=== PATIENT | male | born 1985 ===

== ENCOUNTER 2017-05-04 22:11 | Inpatient (IN) | payer MEDICAID ==
[2017-05-04 22:42] LABS: BASO # 0.1 K/uL (0.0-0.2); BASO % 0.8 % (0.0-2.0); EOS # 0.2 K/uL (0.0-0.7); EOS % 2.4 % (0.0-4.0); HEMATOCRIT 38.9 % (35.0-51.0); LYMPH # 2.5 K/uL (1.0-4.3); LYMPH % 36.5 % (20.0-40.0); MEAN CELL VOLUME 93.7 fL (80.0-94.0); MEAN CORPUSCULAR HEMOGLOBIN 31.2 pg (27.0-31.0); MEAN CORPUSCULAR HGB CONC 33.3 g/dL (33.0-37.0); MEAN PLATELET VOLUME 7.8 fL (7.2-11.7); MONO # 0.6 K/uL (0.0-0.8); MONO % 8.2 % (0.0-10.0); RED CELL DISTRIBUTION WIDTH 14.2 % (11.5-14.5); WHITE BLOOD COUNT 6.8 K/uL (4.8-10.8)
[2017-05-04 22:53] LABS: CHLORIDE 101 mmol/L (98-107)
[2017-05-04 22:54] LABS: POTASSIUM 3.4 mmol/L (3.6-5.2); SODIUM 140 mmol/L (132-148)
[2017-05-04 22:56] LABS: BILIRUBIN,TOTAL 0.8 mg/dL (0.2-1.3); CARBON DIOXIDE 23 mmol/L (22-30); GFR AFRICAN-AMERICAN > 60
[2017-05-04 22:57] LABS: ALB/GLOB RATIO 1.1 (1.0-2.1); ALKALINE PHOSPHATASE 76 U/L (38-126); ALT/SGPT 35 U/L (21-72); AST/SGOT 30 U/L (17-59); BLOOD UREA NITROGEN 14 mg/dL (9-20); GLUCOSE,RANDOM 114 mg/dL (75-110); TOTAL PROTEIN 8.5 g/dL (6.3-8.3)
[2017-05-04 22:58] LABS: ALCOHOL SERUM < 10 mg/dl (0-10)
[2017-05-04 23:06] LABS: RBC URINE 1 /hpf (0-3); URINE BACTERIA OCC (<OCC); URINE BILIRUBIN NEGATIVE (NEGATIVE); URINE BLOOD NEGATIVE (NEGATIVE); URINE COLOR Yellow (YELLOW); URINE GLUCOSE (UA) NORMAL (Normal); URINE KETONE TRACE mg/dL (NEGATIVE); URINE LEUKOCYTE ESTERASE TRACE Leu/uL (Negative); URINE PROTEIN NEGATIVE (NEGATIVE); WBC URINE 5 /hpf (0-5)
[2017-05-04] MEDS ORDERED: Naloxone 0.4 mg/ml Inj (Adult) IV STA ×3 (23:12→23:14)
--- NOTE | 2017-05-04 23:59 | C.PDOC ---
History Of Present Illness Patient is a 32 year old male brought in to the ER by EMS after he was found unresponsive in a hotel room. Patient was given 2.8mg of narcan in the field with no response; EMS reports he vomited on enroute. Patient was given another 8mg of narcan in the ER; patient sat up and vomited while nurses attempted to start an IV and once during an intubation attempt. Patient is unresponsive and has not verbalized any complaints at the time. Time Seen by Provider: 05/04/17 22:57 Chief Complaint (Nursing): Substance Abuse History Per: EMS History/Exam Limitations: no limitations, clinical condition Onset/Duration Of Symptoms: Unknown Current Symptoms Are (Timing): Still Present Modifying Factor(s): Other (Unknown) Involuntary Hold By: None Past Medical History Reviewed: Historical Data, Nursing Documentation, Vital Signs Vital Signs: Last Vital Signs Temp 94.1 F L 05/04/17 22:15 Pulse 61 05/04/17 22:15 Resp 8 L 05/04/17 22:15 BP 133/85 05/04/17 22:15 Pulse Ox 98 05/05/17 00:05 - Medical History Other PMH: Unable to obtain Other Surgeries: Unable to obtain Family History: States: Unknown Family Hx - Social History Hx Substance Use: Yes - Immunization History Hx Tetanus Toxoid Vaccination: No (unobtainable) Hx Influenza Vaccination: No (unobtainable) Hx Pneumococcal Vaccination: No (unobtainable) Review Of Systems Review Of Systems: ROS cannot be obtained secondary to pt's inabilty to answer questions. Physical Exam - Physical Exam Appears: Other (Unresponsive) Skin: Warm, Dry Head: Atraumatic, Normacephalic Eye(s): bilateral: Other (Pin point contricted pupils, nonreactive) Oral Mucosa: Moist Chest: Symmetrical, No Tenderness Cardiovascular: Rhythm Regular, No Murmur Respiratory: No Rales, No Rhonchi, Wheezing (Slightly audible wheezing), Other ( Respirations at 8-10 per minute) Gastrointestinal/Abdominal: Soft, Tenderness Extremity: Bilateral: Atraumatic Pulses: Left Carotid: Normal, Right Carotid: Normal Neurological/Psych: No Response To Commands Pain Response: No Response To Pain ED Course And Treatment - Laboratory Results Result Diagrams: 05/04/17 22:39 05/04/17 22:39 Lab Interpretation: Abnormal ECG: Interpreted By Me ECG Rhythm: Sinus Rhythm ECG Interpretation: Normal O2 Sat by Pulse Oximetry: 98 (Room air) Pulse Ox Interpretation: Normal Progress Note: Narcan administered. Blood work, EKG, and CXR ordered. Attempt to intubate patient resulted in stimulation with vomiting. He woke briefly but then became unresponsive again. His pupils continue to be constricted and respirations depressed although he is saturating well. Dr Souza at bedside. Will admit to ICU for observation. Case discussed with Dr Baeza. Reevaluation Time: 00:11 Reassessment Condition: Improved (Patient now awake and reported use methamphetamines and GHB.) Disposition - Disposition Disposition: HOSPITALIZED Disposition Time: 00:14 Condition: IMPROVED - Clinical Impression Clinical Impression: Drug overdose - Scribe Statement The provider has reviewed the documentation as recorded by the Scribkorina Mcfarland All medical record entries made by the Scribe were at my direction and personally dictated by me. I have reviewed the chart and agree that the record accurately reflects my personal performance of the history, physical exam, medical decision making, and the department course for this patient. I have also personally directed, reviewed, and agree with the discharge instructions and disposition.
--- NOTE | 2017-05-05 | CP.PCM.HP ---
History of Present Illness - History of Present Illness History of Present Illness: CC - Unresponsive HPI - 32 year old male presents to the ED brought in by EMS. Patient is a 32 year old male brought in to the ER by EMS after he was found unresponsive in a hotel room. Patient was given 2.8mg of narcan in the field with no response; EMS reports he vomited on enroute. Patient was given another 8mg of narcan in the ER; patient sat up and vomited while nurses attempted to start an IV and once during an intubation attempt. Patient was noted to have decreased respiratory rate and was saturating well on ventimask. Patient woke up with sternal rub and was able to given his name and birthdate and stated "I did methamphetamine" but he was not able to provide any other information. Patient was moving all of his extremities. Medical history unobtainable. Present on Admission - Present on Admission Any Indicators Present on Admission: No Review of Systems - Review of Systems Systems not reviewed;Unavailable: Altered Mental Status Past Patient History - Infectious Disease Hx of Infectious Diseases: None - Past Social History Smoking Status: unknown - PSYCHIATRIC Hx Substance Use: Yes - SURGICAL HISTORY Hx Surgeries: No (unable to obtain) - ANESTHESIA Hx Anesthesia: No Meds Allergies/Adverse Reactions: Allergies Allergy/AdvReac Type Severity Reaction Status Date / Time No Allergy Information Allergy Verified 05/04/17 23:27 Available Physical Exam - Constitutional Appears: Toxic, In Acute Distress, Confused Additional comments: Altered, Unresponsive - Head Exam Head Exam: ATRAUMATIC, NORMAL INSPECTION - Eye Exam Eye Exam: EOMI, Normal appearance, PERRL Pupil Exam: NORMAL ACCOMODATION Additional comments: constricted - ENT Exam ENT Exam: Mucous Membranes Moist - Respiratory Exam Respiratory Exam: Clear to Auscultation Bilateral, NORMAL BREATHING PATTERN. absent: Accessory Muscle Use, Decreased Breath Sounds, Respiratory Distress - Cardiovascular Exam Cardiovascular Exam: REGULAR RHYTHM, +S1, +S2 - GI/Abdominal Exam GI & Abdominal Exam: Normal Bowel Sounds, Soft. absent: Distended, Firm, Guarding, Tenderness - Extremities Exam Extremities exam: Positive for: normal inspection. Negative for: calf tenderness, pedal edema - Back Exam Back exam: NORMAL INSPECTION. absent: CVA tenderness (L), CVA tenderness (R), paraspinal tenderness - Neurological Exam Neurological exam: Altered - Skin Additional comments: L antecubital spots of possible IV drug injection Results - Vital Signs Recent Vital Signs: Last Vital Signs Temp 94.1 F L 05/04/17 22:15 Pulse 61 05/04/17 22:15 Resp 8 L 05/04/17 22:15 BP 133/85 05/04/17 22:15 Pulse Ox 98 05/04/17 22:15 - Labs Result Diagrams: 05/04/17 22:39 05/04/17 22:39 Assessment & Plan - Assessment and Plan (Free Text) Assessment: Altered mental status Narcan 10mg IVP given in the ED Narcan 1mg IVP Q1 prn RR <6 Zofran 4mg IV Q4 x 3 doses D5 1/2NS at 40 meq Kcl at 100 cc/hour seizure and aspiration precautions f/u labs, UDS Heparin 500 U SC q8 Admit to ICU
[2017-05-05] MEDS ORDERED: Naloxone 0.4 mg/ml Inj (Adult) IVP PRN (00:11)
[2017-05-05 00:54] LABS: INR 1.2
[2017-05-05] MEDS: Potassium Chl 40 mEq in D5-1/2 1,000 ML IV SCH ×3 (01:20→22:45)
[2017-05-05 02:06] VITALS: O2SAT 100
[2017-05-05 06:48] LABS: BASO # 0.1 K/uL (0.0-0.2); BASO % 0.8 % (0.0-2.0); EOS # 0.1 K/uL (0.0-0.7); EOS % 0.9 % (0.0-4.0); HEMATOCRIT 39.1 % (35.0-51.0); LYMPH # 2.6 K/uL (1.0-4.3); LYMPH % 30.1 % (20.0-40.0); MEAN CELL VOLUME 93.5 fL (80.0-94.0); MEAN CORPUSCULAR HEMOGLOBIN 31.2 pg (27.0-31.0); MEAN CORPUSCULAR HGB CONC 33.4 g/dL (33.0-37.0); MEAN PLATELET VOLUME 7.9 fL (7.2-11.7); MONO # 0.7 K/uL (0.0-0.8); MONO % 7.5 % (0.0-10.0); RED CELL DISTRIBUTION WIDTH 14.7 % (11.5-14.5); WHITE BLOOD COUNT 8.7 K/uL (4.8-10.8)
--- NOTE | 2017-05-05 07:05 | CP.PCM.CON ---
History of Present Illness - History of Present Illness History of Present Illness: CC - Unresponsive HPI - 32 year old male presents to the ED brought in by EMS. Patient is a 32 year old male brought in to the ER by EMS after he was found unresponsive in a hotel room. Patient was given 2.8mg of narcan in the field with no response; EMS reports he vomited on enroute. Patient was given another 8mg of narcan in the ER; patient sat up and vomited while nurses attempted to start an IV and once during an intubation attempt. Patient was noted to have decreased respiratory rate and was saturating well on ventimask. Patient woke up with sternal rub and was able to given his name and birthdate and stated "I did methamphetamine" but he was not able to provide any other information. Patient was moving all of his extremities. Patient claims that he was using, Gamma hydroxybutyrate, street drug after that patient was found unresponsive in the hotel, and brought in by the ambulance. In the emergency room patient was unresponsive initially, he was not responding to Narcan, and he also vomited at 2. Patient claims that he had a similar episode 2 years ago, and at the time he was on respirator intubated. Currently he is awake and responding. He denies any chest pain. Somewhat sleepy otherwise. Review of system: He has no headache, mild dizziness noted, chest pain negative, vomited 2 Vital signs reviewed No neck vein distention noted Chest good air entry bilaterally, no wheezing or rales noted CVS regular heart sound, no murmur noted Abdomen soft, nontender. Extremities no pedal edema FRONT EDGER alert awake oriented 3, no functional neurological deficit Vitals stable at this time, labs reviewed Assessment and recommendation: 32-year-old male admitted with a drug overdose. Unresponsive, improved markedly. Currently doing okay. Closely monitor the patient Past Patient History - Infectious Disease Hx of Infectious Diseases: None - Past Medical History & Family History Past Medical History?: Yes - Past Social History Smoking Status: unknown - CARDIAC Hx Cardiac Disorders: Yes Hx Heart Murmur: Yes Other/Comment: heart murmur during childhood - PULMONARY Hx Respiratory Disorders: Yes Other/Comment: intubated 2 years- due to drug overdose; got unresponsive - NEUROLOGICAL Hx Neurological Disorder: No - HEENT Hx HEENT Problems: No - RENAL Hx Chronic Kidney Disease: No - ENDOCRINE/METABOLIC Hx Endocrine Disorders: No - HEMATOLOGICAL/ONCOLOGICAL Hx Anemia: Yes Other/Comment: HIV diagnosed 2012 - INTEGUMENTARY Hx Cellulitis: Yes Other/Comment: impetigo-face - MUSCULOSKELETAL/RHEUMATOLOGICAL Hx Falls: Yes - GASTROINTESTINAL Hx Hemorrhoids: Yes - GENITOURINARY/GYNECOLOGICAL Hx Genitourinary Disorders: Yes Hx Sexually Transmitted Disorders: Yes (syphillis,chlamydia gonorrhea) - PSYCHIATRIC Hx Substance Use: Yes - SURGICAL HISTORY Hx Surgeries: No (unable to obtain) - ANESTHESIA Hx Anesthesia: No Meds Allergies/Adverse Reactions: Allergies Allergy/AdvReac Type Severity Reaction Status Date / Time No Allergy Information Allergy Verified 05/04/17 23:27 Available - Medications Medications: Current Medications Heparin Sodium (Porcine) (Heparin) 5,000 units SC Q8 [facility] Last Admin: 05/05/17 05:43 Dose: 5,000 units Potassium Chloride/Dextrose/Sod Cl (Potassium Chl 40 Meq In D5-1/2ns) 1,000 mls @ 100 mls/hr IV .Q10H [facility] Last Admin: 05/05/17 01:20 Dose: 100 mls/hr Naloxone HCl (Narcan) 1 mg IVP Q1 PRN PRN Reason: Sedation Ondansetron HCl (Zofran Inj) 4 mg IVP Q4 [facility] Stop: 05/05/17 08:01 Last Admin: 05/05/17 04:00 Dose: 4 mg Pneumococcal Polyvalent Vaccine (Pneumovax 23 Vaccine) 0.5 ml IM .ONCE ONE Stop: 05/07/17 10:01 Results - Vital Signs Recent Vital Signs: Last Vital Signs Temp 97.9 F 05/05/17 04:00 Pulse 86 05/05/17 06:56 Resp 12 05/05/17 06:56 BP 126/68 05/05/17 06:56 Pulse Ox 100 05/05/17 06:56 - Labs Result Diagrams: 05/05/17 06:31 05/04/17 22:39 Labs: Laboratory Results - last 24 hr 05/05/17 05/05/17 05/05/17 00:28 00:54 06:31 WBC 8.7 RBC 4.18 L Hgb 13.1 Hct 39.1 MCV 93.5 MCH 31.2 H MCHC 33.4 RDW 14.7 H Plt Count 376 MPV 7.9 Neut % (Auto) 60.7 Lymph % (Auto) 30.1 [place] % (Auto) 7.5 Eos % (Auto) 0.9 Baso % (Auto) 0.8 Neut # 5.3 Lymph # 2.6 [place] # 0.7 Eos # 0.1 Baso # 0.1 PT 13.6 H INR 1.2 APTT 35 H Blood Type O POSITIVE Antibody Screen Negative
[2017-05-05 07:12] LABS: CHLORIDE 102 mmol/L (98-107); SODIUM 138 mmol/L (132-148)
[2017-05-05 07:13] LABS: POTASSIUM 3.7 mmol/L (3.6-5.2)
[2017-05-05 07:14] LABS: GFR AFRICAN-AMERICAN > 60
[2017-05-05 07:15] LABS: ALB/GLOB RATIO 1.2 (1.0-2.1); ALKALINE PHOSPHATASE 71 U/L (38-126); ALT/SGPT 22 U/L (21-72); AST/SGOT 32 U/L (17-59); BILIRUBIN,TOTAL 0.9 mg/dL (0.2-1.3); BLOOD UREA NITROGEN 11 mg/dL (9-20); CALCIUM 8.6 mg/dl (8.6-10.4); CARBON DIOXIDE 24 mmol/L (22-30); GLUCOSE,RANDOM 111 mg/dL (75-110); PHOSPHOROUS 2.9 mg/dL (2.5-4.5); TOTAL PROTEIN 7.4 g/dL (6.3-8.3)
[2017-05-05 07:16] LABS: MAGNESIUM 2.1 mg/dL (1.6-2.3)
--- NOTE | 2017-05-05 07:23 | CP.CCUPN ---
CCU Objective - Vital Signs / Intake & Output Vital Signs (Last 4 hours): Vital Signs Temp Pulse Resp BP Pulse Ox 05/05/17 06:56 86 12 126/68 100 05/05/17 06:00 90 11 L 100 05/05/17 05:56 119/74 05/05/17 05:00 88 12 100 05/05/17 04:56 126/85 05/05/17 04:00 97.9 F 05/05/17 03:56 71 9 L 125/81 100 Intake and Output (Last 8hrs): Intake & Output 05/04/17 05/05/17 05/05/17 22:59 06:59 14:59 Intake Total 200 Output Total 0 Balance 200 Intake: Intake, IV Amount 200 Right Antecubital 200 Output: Urine 0 Urine, Voided 0 - Medications Active Medications: Active Medications Generic Name Dose Route Start Last Admin Trade Name Freq PRN Reason Stop Dose Admin Heparin Sodium (Porcine) 5,000 units 05/05/17 00:15 05/05/17 05:43 Heparin SC 5,000 units Q8 ZO Administration Potassium Chloride/Dextrose/Sod Cl 1,000 mls @ 100 mls/hr 05/05/17 00:15 01:20 Potassium Chl 40 Meq In D5-1/2ns IV 100 mls/hr .Q10H ZO Administration Naloxone HCl 1 mg 05/05/17 00:11 Narcan IVP Q1 PRN Sedation Ondansetron HCl 4 mg 05/05/17 00:15 05/05/17 04:00 Zofran Inj IVP 05/05/17 08:01 4 mg Q4 ZO Administration Pneumococcal Polyvalent Vaccine 0.5 ml 05/07/17 10:00 Pneumovax 23 Vaccine IM 05/07/17 10:01 .ONCE ONE - Patient Studies Lab Studies: Lab Studies 05/05/17 05/05/17 05/05/17 Range/Units 06:31 06:31 00:54 WBC 8.7 (4.8-10.8) K/uL RBC 4.18 L (4.40-5.90) Mil/uL Hgb 13.1 (12.0-18.0) g/dL Hct 39.1 (35.0-51.0) % MCV 93.5 (80.0-94.0) fL MCH 31.2 H (27.0-31.0) pg MCHC 33.4 (33.0-37.0) g/dL RDW 14.7 H (11.5-14.5) % Plt Count 376 (130-400) K/uL MPV 7.9 (7.2-11.7) fL Neut % (Auto) 60.7 (50.0-75.0) % Lymph % (Auto) 30.1 (20.0-40.0) % [place] % (Auto) 7.5 (0.0-10.0) % Eos % (Auto) 0.9 (0.0-4.0) % Baso % (Auto) 0.8 (0.0-2.0) % Neut # 5.3 (1.8-7.0) K/uL Lymph # 2.6 (1.0-4.3) K/uL [place] # 0.7 (0.0-0.8) K/uL Eos # 0.1 (0.0-0.7) K/uL Baso # 0.1 (0.0-0.2) K/uL PT (9.7-12.2) SECONDS INR APTT (21-34) SECONDS Sodium 138 (132-148) mmol/L Potassium 3.7 (3.6-5.2) mmol/L Chloride 102 (98-107) mmol/L Carbon Dioxide 24 (22-30) mmol/L Anion Gap 16 (10-20) BUN 11 (9-20) mg/dL Creatinine 0.7 L (0.8-1.5) MG/DL Est GFR ( Amer) > 60 Est GFR (Non-Af Amer) > 60 Random Glucose 111 H (75-110) mg/dL Calcium 8.6 (8.6-10.4) mg/dl Phosphorus 2.9 (2.5-4.5) mg/dL Magnesium 2.1 (1.6-2.3) mg/dL Total Bilirubin 0.9 (0.2-1.3) mg/dL AST 32 (17-59) U/L ALT 22 (21-72) U/L Alkaline Phosphatase 71 (38-126) U/L Total Protein 7.4 (6.3-8.3) g/dL Albumin 4.0 (3.5-5.0) g/dL Globulin 3.4 (2.2-3.9) gm/dL Albumin/Globulin Ratio 1.2 (1.0-2.1) Blood Type O POSITIVE Antibody Screen Negative 05/05/17 Range/Units 00:28 WBC (4.8-10.8) K/uL RBC (4.40-5.90) Mil/uL Hgb (12.0-18.0) g/dL Hct (35.0-51.0) % MCV (80.0-94.0) fL MCH (27.0-31.0) pg MCHC (33.0-37.0) g/dL RDW (11.5-14.5) % Plt Count (130-400) K/uL MPV (7.2-11.7) fL Neut % (Auto) (50.0-75.0) % Lymph % (Auto) (20.0-40.0) % [place] % (Auto) (0.0-10.0) % Eos % (Auto) (0.0-4.0) % Baso % (Auto) (0.0-2.0) % Neut # (1.8-7.0) K/uL Lymph # (1.0-4.3) K/uL [place] # (0.0-0.8) K/uL Eos # (0.0-0.7) K/uL Baso # (0.0-0.2) K/uL PT 13.6 H (9.7-12.2) SECONDS INR 1.2 APTT 35 H (21-34) SECONDS Sodium (132-148) mmol/L Potassium (3.6-5.2) mmol/L Chloride (98-107) mmol/L Carbon Dioxide (22-30) mmol/L Anion Gap (10-20) BUN (9-20) mg/dL Creatinine (0.8-1.5) MG/DL Est GFR ( Amer) Est GFR (Non-Af Amer) Random Glucose (75-110) mg/dL Calcium (8.6-10.4) mg/dl Phosphorus (2.5-4.5) mg/dL Magnesium (1.6-2.3) mg/dL Total Bilirubin (0.2-1.3) mg/dL AST (17-59) U/L ALT (21-72) U/L Alkaline Phosphatase (38-126) U/L Total Protein (6.3-8.3) g/dL Albumin (3.5-5.0) g/dL Globulin (2.2-3.9) gm/dL Albumin/Globulin Ratio (1.0-2.1) Blood Type Antibody Screen Laboratory Results - last 24 hr 05/05/17 05/05/17 05/05/17 00:28 00:54 06:31 WBC 8.7 RBC 4.18 L Hgb 13.1 Hct 39.1 MCV 93.5 MCH 31.2 H MCHC 33.4 RDW 14.7 H Plt Count 376 MPV 7.9 Neut % (Auto) 60.7 Lymph % (Auto) 30.1 [place] % (Auto) 7.5 Eos % (Auto) 0.9 Baso % (Auto) 0.8 Neut # 5.3 Lymph # 2.6 [place] # 0.7 Eos # 0.1 Baso # 0.1 PT 13.6 H INR 1.2 APTT 35 H Sodium Potassium Chloride Carbon Dioxide Anion Gap BUN Creatinine Est GFR ( Amer) Est GFR (Non-Af Amer) Random Glucose Calcium Phosphorus Magnesium Total Bilirubin AST ALT Alkaline Phosphatase Total Protein Albumin Globulin Albumin/Globulin Ratio Blood Type O POSITIVE Antibody Screen Negative 05/05/17 06:31 WBC RBC Hgb Hct MCV MCH MCHC RDW Plt Count MPV Neut % (Auto) Lymph % (Auto) [place] % (Auto) Eos % (Auto) Baso % (Auto) Neut # Lymph # [place] # Eos # Baso # PT INR APTT Sodium 138 Potassium 3.7 Chloride 102 Carbon Dioxide 24 Anion Gap 16 BUN 11 Creatinine 0.7 L Est GFR ( Amer) > 60 Est GFR (Non-Af Amer) > 60 Random Glucose 111 H Calcium 8.6 Phosphorus 2.9 Magnesium 2.1 Total Bilirubin 0.9 AST 32 ALT 22 Alkaline Phosphatase 71 Total Protein 7.4 Albumin 4.0 Globulin 3.4 Albumin/Globulin Ratio 1.2 Blood Type Antibody Screen
--- NOTE | 2017-05-05 10:44 | RAD ---
HISTORY: post intubation COMPARISON: No prior. FINDINGS: LUNGS: Right PICC line with tip extending to the proximal right SVC. Advancement may be helpful. Patchy consolidative changes in the left mid to lower lung zone with associated left pleural effusion. PLEURA: As above. CARDIOVASCULAR: Cardiomegaly. Calcification at the aortic knob. OSSEOUS STRUCTURES: Degenerative changes in the spine and shoulders. VISUALIZED UPPER ABDOMEN: Normal. OTHER FINDINGS: None. IMPRESSION: Right PICC line with tip extending to the proximal right SVC. Advancement may be helpful. Patchy consolidative changes in the left mid to lower lung zone with associated left pleural effusion.
--- NOTE | 2017-05-05 13:58 | CP.PCM.PN ---
Subjective - Date & Time of Evaluation Date of Evaluation: 05/05/17 Time of Evaluation: 13:00 - Subjective Subjective: Patient was seen and examined by me, He was awake alert, he is not under any acute distress. He tells me that he did try to use drugs. He is doing this recreationally. He denied having any suicidal intention and denied any intention to hurt himself or others. He knew where he is at. He did not want his family members to know where he was at and what had happened. The patient explains that he used crystal methamphetamine and he thinks gamma hydroxybutyrate. We talked about his lab work, we also talked about the events that happened last night and how we work really concerned that he might need to have been intubated. Patient explains that he's thinking about leaving AMA later today but he doesn' t know how he's can get back home and he doesn't want to tell his parents and he does not have phone Objective - Vital Signs/Intake and Output Vital Signs (last 24 hours): Temp Pulse Resp BP Pulse Ox 97.4 F L 93 H 16 122/81 100 05/05/17 08:00 05/05/17 11:35 05/05/17 11:35 05/05/17 11:35 05/05/17 09:00 Intake and Output: 05/05/17 05/05/17 06:59 18:59 Intake Total 200 800 Output Total 0 200 Balance 200 600 - Medications Medications: Current Medications Heparin Sodium (Porcine) (Heparin) 5,000 units SC Q8 [facility] Last Admin: 05/05/17 05:43 Dose: 5,000 units Potassium Chloride/Dextrose/Sod Cl (Potassium Chl 40 Meq In D5-1/2ns) 1,000 mls @ 100 mls/hr IV .Q10H [facility] Last Admin: 05/05/17 11:33 Dose: 100 mls/hr Naloxone HCl (Narcan) 1 mg IVP Q1 PRN PRN Reason: Sedation Pneumococcal Polyvalent Vaccine (Pneumovax 23 Vaccine) 0.5 ml IM .ONCE ONE Stop: 05/07/17 10:01 - Labs Labs: 05/05/17 06:31 05/05/17 06:31 PT 13.6 SECONDS (9.7-12.2) H 05/05/17 00:28 INR 1.2 05/05/17 00:28 APTT 35 SECONDS (21-34) H 05/05/17 00:28 - Constitutional Appears: Well, No Acute Distress - Head Exam Head Exam: NORMAL INSPECTION - Eye Exam Eye Exam: EOMI - Respiratory Exam Respiratory Exam: Clear to Ausculation Bilateral, NORMAL BREATHING PATTERN - Cardiovascular Exam Cardiovascular Exam: REGULAR RHYTHM Attending/Attestation - Attestation Notes (Text): 05/05/17 13:59 1 polysubstance abuse. The patient reports that he was using crystal methamphetamine and probably gamma hydroxybutyrate is a second drug. Currently the patient stable vital signs, blood work appears to be stable as well.
[2017-05-05 17:14] VITALS: TEMP 99.2
[2017-05-05 17:25] VITALS: BP 155/102; PULSE 101; RESP 17
--- NOTE | 2017-05-06 00:03 | CP.PCM.DIS ---
Provider - Provider Date of Admission: 05/04/17 23:31 Attending physician: Fercho Souza MD Primary care physician: none Consults: Psychiatry - Dr. Mccrary Time Spent in preparation of Discharge (in minutes): 35 Diagnosis - Discharge Diagnosis (1) Drug overdose Status: Acute Comment: Patient left [facility] Hospital Course - Lab Results Lab Results: Most Recent Lab Values WBC 8.7 K/uL (4.8-10.8) 05/05/17 06:31 RBC 4.18 Mil/uL (4.40-5.90) L 05/05/17 06:31 Hgb 13.1 g/dL (12.0-18.0) 05/05/17 06:31 Hct 39.1 % (35.0-51.0) 05/05/17 06:31 MCV 93.5 fL (80.0-94.0) 05/05/17 06:31 MCH 31.2 pg (27.0-31.0) H 05/05/17 06:31 MCHC 33.4 g/dL (33.0-37.0) 05/05/17 06:31 RDW 14.7 % (11.5-14.5) H 05/05/17 06:31 Plt Count 376 K/uL (130-400) 05/05/17 06:31 MPV 7.9 fL (7.2-11.7) 05/05/17 06:31 Neut % (Auto) 60.7 % (50.0-75.0) 05/05/17 06:31 Lymph % (Auto) 30.1 % (20.0-40.0) 05/05/17 06:31 Mcdonald % (Auto) 7.5 % (0.0-10.0) 05/05/17 06:31 Eos % (Auto) 0.9 % (0.0-4.0) 05/05/17 06:31 Baso % (Auto) 0.8 % (0.0-2.0) 05/05/17 06:31 Neut # 5.3 K/uL (1.8-7.0) 05/05/17 06:31 Lymph # 2.6 K/uL (1.0-4.3) 05/05/17 06:31 Mcdonald # 0.7 K/uL (0.0-0.8) 05/05/17 06:31 Eos # 0.1 K/uL (0.0-0.7) 05/05/17 06:31 Baso # 0.1 K/uL (0.0-0.2) 05/05/17 06:31 PT 13.6 SECONDS (9.7-12.2) H 05/05/17 00:28 INR 1.2 05/05/17 00:28 APTT 35 SECONDS (21-34) H 05/05/17 00:28 Sodium 138 mmol/L (132-148) 05/05/17 06:31 Potassium 3.7 mmol/L (3.6-5.2) 05/05/17 06:31 Chloride 102 mmol/L (98-107) 05/05/17 06:31 Carbon Dioxide 24 mmol/L (22-30) 05/05/17 06:31 Anion Gap 16 (10-20) 05/05/17 06:31 BUN 11 mg/dL (9-20) 05/05/17 06:31 Creatinine 0.7 MG/DL (0.8-1.5) L 05/05/17 06:31 Est GFR ( Amer) > 60 05/05/17 06:31 Est GFR (Non-Af Amer) > 60 05/05/17 06:31 Random Glucose 111 mg/dL (75-110) H 05/05/17 06:31 Calcium 8.6 mg/dl (8.6-10.4) 05/05/17 06:31 Phosphorus 2.9 mg/dL (2.5-4.5) 05/05/17 06:31 Magnesium 2.1 mg/dL (1.6-2.3) 05/05/17 06:31 Total Bilirubin 0.9 mg/dL (0.2-1.3) 05/05/17 06:31 AST 32 U/L (17-59) 05/05/17 06:31 ALT 22 U/L (21-72) 05/05/17 06:31 Alkaline Phosphatase 71 U/L (38-126) 05/05/17 06:31 Total Protein 7.4 g/dL (6.3-8.3) 05/05/17 06:31 Albumin 4.0 g/dL (3.5-5.0) 05/05/17 06:31 Globulin 3.4 gm/dL (2.2-3.9) 05/05/17 06:31 Albumin/Globulin Ratio 1.2 (1.0-2.1) 05/05/17 06:31 Urine Color Yellow (YELLOW) 05/04/17 22:54 Urine Clarity Clear (Clear) 05/04/17 22:54 Urine pH 5.0 (5.0-8.0) 05/04/17 22:54 Ur Specific [place] 1.017 (1.003-1.030) 05/04/17 22:54 Urine Protein Negative mg/dL (NEGATIVE) 05/04/17 22:54 Urine Glucose (UA) Normal mg/dL (Normal) 05/04/17 22:54 Urine Ketones Trace mg/dL (NEGATIVE) 05/04/17 22:54 Urine Blood Negative (NEGATIVE) 05/04/17 22:54 Urine Nitrate Negative (NEGATIVE) 05/04/17 22:54 Urine Bilirubin Negative (NEGATIVE) 05/04/17 22:54 Urine Urobilinogen 2.0 mg/dL (0.2-1.0) 05/04/17 22:54 Ur Leukocyte Esterase Trace Cari/uL (Negative) 05/04/17 22:54 Urine WBC (Auto) 5 /hpf (0-5) 05/04/17 22:54 Urine RBC (Auto) 1 /hpf (0-3) 05/04/17 22:54 Urine Bacteria Occ (<OCC) H 05/04/17 22:54 Salicylates < 1.0 mg/dL 1 05/04/17 22:39 Urine Opiates Screen Negative (NEGATIVE) 05/04/17 22:54 Urine Methadone Screen Negative (NEGATIVE) 05/04/17 22:54 Acetaminophen < 10.0 ug/mL (10.0-30.0) L 05/04/17 22:39 Ur Barbiturates Screen Negative (NEGATIVE) 05/04/17 22:54 Ur Phencyclidine Scrn Negative (NEGATIVE) 05/04/17 22:54 Ur Amphetamines Screen (NEGATIVE) 05/04/17 22:54 U Benzodiazepines Scrn Negative (NEGATIVE) 05/04/17 22:54 U Oth Cocaine Metabols Negative (NEGATIVE) 05/04/17 22:54 U Cannabinoids Screen Negative (NEGATIVE) 05/04/17 22:54 Alcohol, Quantitative < 10 mg/dl (0-10) 05/04/17 22:39 Blood Type O POSITIVE 05/05/17 00:54 Antibody Screen Negative 05/05/17 00:54 - Hospital Course Hospital Course: On admission: 32 year old male presents to the ED brought in by EMS. Patient is a 32 year old male brought in to the ER by EMS after he was found unresponsive in a hotel room. Patient was given 2.8mg of narcan in the field with no response; EMS reports he vomited on enroute. Patient was given another 8mg of narcan in the ER; patient sat up and vomited while nurses attempted to start an IV and once during an intubation attempt. Patient was noted to have decreased respiratory rate and was saturating well on ventimask. Patient woke up with sternal rub and was able to given his name and birthday and stated "I did methamphetamine" but he was not able to provide any other information. Patient was moving all of his extremities. During hospital stay: Patient was given 10mg of Narcan. 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 Patient claimed that he had a similar episode 2 years ago, and at the time he was on respirator intubated. He stated he does this in order to cope with his anxiety. He denied suicidal/homicidal ideations. Patient left AMA. AMA Form placed in chart. RISKs/benefits explained. Patient would like to leave and find his phone. His friend is on his way to the hospital to bring him clothes. He did not want his parents to know about this event. Discharge Exam - Head Exam Head Exam: NORMAL INSPECTION Additional comments: no exam. patient wanted to leave AMA Discharge Plan - Follow Up Plan Condition: IMPROVED Disposition: AGAINST MEDICAL ADVICE
--- NOTE | 2017-05-06 06:35 | CARD ---
APPROVED REPORT EKG Measurement Heart [id number] <Conclusion> Normal sinus rhythm Normal ECG
[2017-05-07] MEDS ORDERED: Pneumococcal 23-Valent Vaccine IM ONE (10:00)
== END 2017-05-05 23:35 | disposition left against medical advice (07) | DRG 450 ==
LOC: C.ER 22:11 → MERGE 23:31 → C.9I 23:31 → C.3T 05-05 21:13
PROVIDERS: ADMIT Internal Medicine; ATTEND Internal Medicine
DX: T43.621A Poisoning by amphetamines, accidental (unintentional), initial encounter (principal); F41.9 Anxiety disorder, unspecified; Y92.89 Other specified places as the place of occurrence of the external cause